=== PATIENT | female | born 1970 | race Caucasian/White ===

== ENCOUNTER → 2016-11-17 | Outpatient (CLI) | payer OTHER ==
[~2016-11-17] MED LIST: BACL10TA PO; CIPR-255 PO; FEXO1TAB49 PO; IBUP-103 PO; SUMA50TA15 PO
--- NOTE | 2016-11-18 15:10 | MAMMOGRAPHY REPORT ---
BILATERAL DIGITAL SCREENING MAMMOGRAM TOMOSYNTHESIS WITH CAD: 11/17/2016 CLINICAL HISTORY: Routine screening. Patient has no complaints. TECHNIQUE: Breast tomosynthesis in addition to standard 2D mammography was performed. Current study was also evaluated with a Computer Aided Detection (CAD) system. COMPARISON: Comparison is made to exams dated: 09/28/2015 mammogram and 06/17/2013 mammogram - [facility]. BREAST COMPOSITION: There are scattered areas of fibroglandular density in both breasts. FINDINGS: There is a lobulated 10 x 6 mm mass in the upper inner quadrant of the right breast. Bas ed on the tomosynthesis images, the borders are not all completely circumscribed and therefore furth er characterization with targeted ultrasound and possible additional mammographic views are recommen ded, although this could represent a benign fibroadenoma, cyst or lymph node. There are diffuse bilateral round and punctate benign-appearing microcalcifications. No other suspi cious mass, architectural distortion or cluster of microcalcifications is seen. IMPRESSION: ACR BI-RADS CATEGORY 0: INCOMPLETE EVALUATION: NEED ADDITIONAL IMAGING EVALUATION The lobulated 10 x 6 mm mass in the right breast needs additional evaluation. The patient will be called to schedule an appointment. Approximately 10% of breast cancers are not detected with mammography. A negative mammographic repor t should not delay biopsy if a clinically suggestive mass is present. Garima Doan M.D. ay/:11/17/2016 15:57:02 Sugarcane Research Technician: Emily ANGULO(R)(M)(BD), [facility] letter sent: Addl Imaging 0 BI-RADS Code: ACR BI-RADS Category 0: Incomplete Evaluation: Need Additional Imaging Evaluation
== END | disposition home or self-care (01) ==
LOC: C.MAMM 07:58
PROVIDERS: ATTEND Nurse Practitioner Family
DX: Z12.31 Encounter for screening mammogram for malignant neoplasm of breast (principal); N63 Unspecified lump in breast

== ENCOUNTER → 2016-11-28 | Outpatient (CLI) | payer OTHER ==
--- NOTE | 2016-12-01 12:37 | MAMMOGRAPHY REPORT ---
UNILATERAL RIGHT DIGITAL DIAGNOSTIC MAMMOGRAM TOMOSYNTHESIS AND TARGETED RIGHT ULTRASOUND: 11/28/2016 CLINICAL HISTORY: Callback from screening mammogram for right breast mass. TECHNIQUE: Breast tomosynthesis in addition to standard 2D mammography was performed. Spot rebeca marilyn right CC and MLO 2-D and tomosynthesis views were obtained. COMPARISON: Comparison is made to exams dated: 11/28/2016 ultrasound, 11/17/2016 mammogram, 09/28/2015 mammogram, and 06/17/2013 mammogram - [facility]. BREAST COMPOSITION: There are scattered areas of fibroglandular density in the right breast. FINDINGS: The spot compression views demonstrate a persistent oval lobulated 10 mm mass with non-ci rcumscribed margins in the right upper inner quadrant. Targeted ultrasound was performed of the area of the mammographic mass. In the right breast at 1:00 , 6 cm from the nipple, there is an oval isoechoic mass with echogenic internal septations and non-c ircumscribed margins, measuring 9 x 5 mm. No internal vascularity is evident. This corresponds wit h the mammographic mass and is indeterminant. Recommend ultrasound guided core needle biopsy for fu rther evaluation. IMPRESSION: ACR BI-RADS CATEGORY 4A: LOW SUSPICION FOR MALIGNANCY, TARGETED ULTRASOUND ACR BI-RADS CATEGORY 4A: LOW SUSPICION FOR MALIGNANCY Isoechoic non-circumscribed 9 mm mass in the right breast at 1:00 on ultrasound, which corresponds w ith the mammographic mass. The mass is indeterminate and ultrasound-guided core needle biopsy is re commended for further evaluation. A phone call was made to the physician's office to confirm faxed results were received. The patient has been verbally notified of the results. She tentatively scheduled the biopsy before leaving the department. Approximately 10% of breast cancers are not detected with mammography. A negative mammographic repor t should not delay biopsy if a clinically suggestive mass is present. Humera Sheldon M.D. ah/:11/30/2016 15:43:05 Methods Analyst Data Processing: Elena ANGULO(Concepcion)(M), [facility] letter sent: Abnormal 4/5 BI-RADS Code: ACR BI-RADS Category 4A: Low Suspicion For Malignancy Ultrasound BI-RADS: ACR BI-RADS Category 4A: Low Suspicion For Malignancy
== END | disposition home or self-care (01) ==
LOC: C.MAMM 14:14
PROVIDERS: ATTEND Nurse Practitioner Family
DX: N63 Unspecified lump in breast (principal)

== ENCOUNTER → 2016-12-10 | Outpatient (CLI) | payer OTHER ==
--- NOTE | 2016-12-10 14:13 | Discharge Instructions ---
Discharge Instructions Procedure Procedure Date: Dec 10, 2016. Reason for visit: Right Mass. Discharge Discharge Date: Dec 10, 2016. Discharge Diagnosis: post right breast ultrasound guided core biopsy Instructions Activity Recommendations: Additional Limitations (see below) Return to School/Work: no limitations Recommended Home Diet: No Limitations Provider Instructions: ACTIVITY RECOMMENDATIONS: * No lifting, pushing, pulling or exercising the affected side for three days. RETURN TO SCHOOL/WORK: * You may return to work/school after the procedure, but do not perform any strenuous activities for 24 to 48 hours. MEDICATIONS: * Tylenol (two 325 mg) every four to six hours if needed for mild pain (if not allergic to Tylenol). DIET: * Resume previous diet. SPECIAL CARE INSTRUCTIONS: * Keep biopsy site dry for 24 hours. May shower after 24 hours, but do not soak (bathe) incision. * May remove Tegaderm (plastic patch) tomorrow AFTER showering. * Leave the steri-strips on for one week. Allow the steri-strips to fall off by themselves. If not off after one week, you may remove them. You may place a Bandaid crosswise over the strips, if desired. * Apply ice 10 minutes on and 10 minutes off as needed. * Wear a bra at bedtime to sleep more comfortably for 2-3 days. * Your referring physician should have the results after approximately 5 to 7 business days. * Call for unusual bleeding, fever, drainage, etc or if you have any questions call [phone] during normal business hours or after hours call Dr Doan, . FOLLOW UP VISIT: Follow-up with Referring Physician as scheduled. Allergies Coded Allergies: No Known Allergies (Unverified , 08/12/13) Morgan De Luna Recommendations: Call your doctor if: * Temperature above 101 degrees * Pain not relieved by pain medicine ordered * There is increased drainage or redness from any incision * You have any unanswered questions or concerns. Your Doctors Instructions noted above were prepared by provider Garima Doan. Patient Signature Section: Patient Instructions Signature Page Wendy Jenkins Patient (or Guardian) Signature/Date: I have read and understand the instructions given to me by my caregivers. Caregiver/RN/Doctor Signature/Date: The above-named patient and/or guardian has received patient instructions on this date. + Original Patient Signature Page (only) stays with chart. Please make copy for patient.
--- NOTE | 2016-12-10 17:08 | MAMMOGRAPHY REPORT ---
ULTRASOUND GUIDED BIOPSY RIGHT BREAST: 12/10/2016 CLINICAL HISTORY: Indeterminate lobulated 9 mm mass in the 1:00 right breast, that is thought to cor relate with a mammographic mass. Patient presents for ultrasound-guided core biopsy. COMPARISON: Comparison is made to exams dated: 11/28/2016 mammogram, 11/28/2016 ultrasound, 06/17/2013 mammogram, 09/28/2015 mammogram, and 11/17/2016 mammogram - [facility]. PATIENT CONSENT: The procedure, risks and benefits were discussed with the patient and informed writ ten consent was obtained. Specific risks to this procedure include: bleeding, infection, puncture of adjacent structure, nontarget biopsy, sampling error and medication reaction. PROCEDURE DESCRIPTION: A time out was performed and the right breast was agreed as the site of biops y. The skin was prepped and draped in the usual sterile fashion. The multilobulated hypoechoic solid -appearing mass in the 1:00 right breast was chosen as the target for biopsy. Subcutaneous and intra parenchymal 1% buffered lidocaine was administered as local anesthesia. A skin incision was made. T hrough the incision, 4 samples were taken with a 12 gauge Celero biopsy device. A metallic marker wa s placed at the biopsy site. Hemostasis was achieved after manual compression. The patient tolerated the procedure well and there was no immediate complication. The samples were sent to the pathology department in appropriately labeled container. Postprocedure right CC and ML tomosynthesis images with reconstructed C-view were obtained. There i s a new ribbon-shaped metallic biopsy marker and no significant hematoma aligning with the previousl y observed mammographic mass in question. This confirms mammographicsonographic correlation. Path ology is pending. IMPRESSION: ULTRASOUND GUIDED BIOPSY Status post ultrasound-guided core biopsy of an indeterminate multilobulated 9 mm mass in the 1:00 r ight breast, with biopsy marker placed at the site. The patient will receive notification of the biopsy results from her referring physician. Garima Doan M.D. ay/:12/10/2016 14:42:41 Certified Residential Medication Aide: Elena MARQUEZ)(Loretta), [facility]
--- NOTE | 2016-12-10 17:08 | MAMMOGRAPHY REPORT ---
UNILATERAL RIGHT DIGITAL DIAGNOSTIC MAMMOGRAM: 12/10/2016 CLINICAL HISTORY: Status post ultrasound guided core biopsy in the 1:00 right breast. Please refer to the report from right breast ultrasound guided core biopsy performed at the same [facility] for full detail. IMPRESSION: POST PROCEDURE IMAGING FOR MARKER PLACEMENT Please refer to the report from right breast ultrasound guided core biopsy performed at the same [facility] for full detail. Approximately 10% of breast cancers are not detected with mammography. A negative mammographic repor t should not delay biopsy if a clinically suggestive mass is present. Garima Doan M.D. ay/:12/10/2016 14:16:00 Environmental Health And Safety Intern: Elena ANGULO(R)(M), [facility] BI-RADS Code: Post Procedure Imaging For Marker Placement
== END | disposition home or self-care (01) ==
LOC: C.MAMM 13:33
PROVIDERS: ATTEND Nurse Practitioner Family
DX: D24.1 Benign neoplasm of right breast (principal)

== ENCOUNTER → 2017-09-23 | Outpatient (CLI) | payer OTHER ==
--- NOTE | 2017-09-24 07:52 | MAMMOGRAPHY REPORT ---
UNILATERAL LEFT DIGITAL DIAGNOSTIC MAMMOGRAM TOMOSYNTHESIS WITH CAD AND TARGETED BILATERAL ULTRASOUND : 09/23/2017 CLINICAL HISTORY: 46-year-old woman presents with new pain in the left upper outer quadrant which she reports is now constant. No skin erythema or nipple discharge. No definite palpable mass. History of recent benign right breast biopsy. TECHNIQUE: Left breast tomosynthesis in addition to standard 2D mammography was performed. Current st udy was also evaluated with a Computer Aided Detection (CAD) system. COMPARISON: Comparison is made to exams dated: 11/17/2016 mammogram, 09/28/2015 mammogram, and 3 mammogram - [facility]. BREAST COMPOSITION: There are scattered areas of fibroglandular density in the left breast. FINDINGS: A square shaped pain marker overlies the upper outer quadrant of the left breast, denoting the area of pain reported by the patient. There is a nodular asymmetry in the superior posterior le ft breast on the MLO view, that appears similar to the prior 11/17/2016 mammograms. A few scattered benign-appearing calcifications. No obvious new mass, focal area of distortion, suspicious calcifica tions or asymmetry is identified. Further evaluation with ultrasound was performed. Targeted ultrasound was performed in the left upper outer quadrant in the areas of pain described by the patient, including the 12:00, 1:00 axes and axillary region. In the 1:00 left breast approximate ly 8 cm from the nipple, there is an isoechoic and anechoic solid appearing mass, possibly an intracy stic mass, measuring 5.8 x 3.2 x 4.0 mm. This could represent a common located cyst or a papilloma a nd definitive characterization with an ultrasound-guided core biopsy is recommended. Throughout the remainder of the areas of pain in the superior left breast and axilla, sonographically normal tissue is seen without evidence of another mass. No suspicious adenopathy is seen in the left axilla. Additional ultrasound was performed in the superior right breast, 11:00 through 1:00 axes as the claudia ent reported a lump after the biopsy. The biopsied mass in the 1:00 right breast appears similar to prior ultrasounds. No other suspicious solid or cystic mass is seen in the superior right breast. IMPRESSION: ACR BI-RADS CATEGORY 4: SUSPICIOUS, TARGETED ULTRASOUND ACR BI-RADS CATEGORY 4: SUSPICIO US 1. Ultrasound guided core biopsy is recommended for an indeterminate possible intracystic mass measu ring 5.8 mm, in the 1:00 left breast, which may have been incidentally identified and is likely not t he underlying cause of the patient's reported superior breast pain. 2. No other suspicious abnormality to explain pain throughout the left superior breast and axilla. No suspicious adenopathy identified. Clinical follow-up is therefore recommended. 3. No new suspicious abnormality on targeted ultrasound identified in the superior right breast to e xplain a lump after the biopsy. Clinical follow-up is also recommended. These results and recommendations were discussed with the patient at the time of the exam. She tenta tively scheduled the left breast biopsy prior to leaving our department. Approximately 10% of breast cancers are not detected with mammography. A negative mammographic report should not delay biopsy if a clinically suggestive mass is present. Garima Doan M.D. ay/:09/23/2017 08:43:52 Field Evidence Technician: Riana ANGULO(R)(M), [facility] letter sent: Abnormal 4/5 BI-RADS Code: ACR BI-RADS Category 4: Suspicious Ultrasound BI-RADS: ACR BI-RADS Category 4: Suspici ous
== END | disposition home or self-care (01) ==
LOC: C.MAMM 07:57
PROVIDERS: ATTEND Nurse Practitioner Family
DX: N64.4 Mastodynia (principal); R92.8 Other abnormal and inconclusive findings on diagnostic imaging of breast

== ENCOUNTER → 2017-10-01 | Outpatient (CLI) | payer OTHER ==
--- NOTE | 2017-10-01 14:00 | Discharge Instructions ---
Discharge Instructions Procedure Procedure Date: Oct 01, 2017. Reason for visit: Left Mass. Discharge Discharge Date: Oct 01, 2017. Discharge Diagnosis: status post breast biopsy Instructions Activity Recommendations: Additional Limitations (see below) Return to School/Work: no limitations Recommended Home Diet: No Limitations Provider Instructions: ACTIVITY RECOMMENDATIONS: * No lifting, pushing, pulling or exercising the affected side for three days. RETURN TO SCHOOL/WORK: * You may return to work/school after the procedure, but do not perform any strenuous activities for 24 to 48 hours. MEDICATIONS: * Tylenol (two 325 mg) every four to six hours if needed for mild pain (if not allergic to Tylenol). DIET: * Resume previous diet. SPECIAL CARE INSTRUCTIONS: * Keep biopsy site dry for 24 hours. May shower after 24 hours, but do not soak (bathe) incision. * May remove Tegaderm (plastic patch) tomorrow AFTER showering. * Leave the steri-strips on for one week. Allow the steri-strips to fall off by themselves. If not off after one week, you may remove them. You may place a Bandaid crosswise over the strips, if desired. * Apply ice 10 minutes on and 10 minutes off as needed. * Wear a bra at bedtime to sleep more comfortably for 2-3 days. * Your referring physician should have the results after approximately 5 to 7 business days. * Call for unusual bleeding, fever, drainage, etc or if you have any questions call during normal business hours or after hours call Dr Sheldon, . FOLLOW UP VISIT: Follow-up with Referring Physician as scheduled. Allergies Coded Allergies: No Known Allergies (Unverified , 08/12/13) Morgan De Luna Recommendations: Call your doctor if: * Temperature above 101 degrees * Pain not relieved by pain medicine ordered * There is increased drainage or redness from any incision * You have any unanswered questions or concerns. Your Doctors Instructions noted above were prepared by provider Humera Sheldon. Patient Signature Section: Patient Instructions Signature Page Wendy Dupontover Patient (or Guardian) Signature/Date: I have read and understand the instructions given to me by my caregivers. Caregiver/RN/Doctor Signature/Date: The above-named patient and/or guardian has received patient instructions on this date. + Original Patient Signature Page (only) stays with chart. Please make copy for patient.
--- NOTE | 2017-10-01 15:30 | MAMMOGRAPHY REPORT ---
UNILATERAL LEFT DIGITAL DIAGNOSTIC MAMMOGRAM TOMOSYNTHESIS: 10/01/2017 CLINICAL HISTORY: Status post left breast biopsy. TECHNIQUE: Breast tomosynthesis in addition to standard 2D mammography was performed. Post procedur e left CC and ML tomosynthesis images were obtained. COMPARISON: Comparison is made to exams dated: 09/23/2017 mammogram, 09/23/2017 ultrasound, 12/10/2016 ultrasound biopsy, 12/10/2016 mammogram, 11/28/2016 mammogram, and 11/28/2016 ultrasound - [facility]. BREAST COMPOSITION: There are scattered areas of fibroglandular density in the left breast. FINDINGS: A new biopsy marker clip is seen at the site of the biopsied mass in the left upper outer quadrant. No significant postbiopsy hematoma is seen. IMPRESSION: POST PROCEDURE IMAGING FOR MARKER PLACEMENT New biopsy marker clip status post left breast biopsy. Pathology results are pending. Approximately 10% of breast cancers are not detected with mammography. A negative mammographic report should not delay biopsy if a clinically suggestive mass is present. Humera Sheldon M.D. ah/:10/01/2017 14:09:04 Finishing Supervisor Plastic Sheets: Elena Gomez, [facility] BI-RADS Code: Post Procedure Imaging For Marker Placement
--- NOTE | 2017-10-01 15:30 | MAMMOGRAPHY REPORT ---
ULTRASOUND GUIDED BIOPSY LEFT BREAST: 10/01/2017 CLINICAL HISTORY: Left 1 o'clock breast mass. PATIENT CONSENT: The procedure, risks and benefits were discussed with the patient and informed writt en consent was obtained. A timeout was performed immediately prior to the procedure. PROCEDURE DESCRIPTION: With ultrasound guidance, aseptic technique, and lidocaine as the local anesth etic (1% lidocaine to anesthetize the skin and 1% lidocaine with epinephrine to anesthetize the deepe r tissues), an attempt was made to aspirate the left 1:00 breast mass. The mass partially aspirated, however, a small residual portion was still present after aspiration. Therefore, the decision was m celi to biopsy the residual portion. The mass of concern in the left 1:00 breast was sampled 3 times w ith a 14-gauge Achieve biopsy needle. Immediately thereafter, with ultrasound guidance, aseptic techn ique, and lidocaine as the local anesthetic, a metallic localizer clip was placed at the biopsy site. Direct pressure was applied to the site immediately post procedure and hemostasis was achieved. Po stprocedure unilateral mammograms were performed to confirm clip placement. Steri-Strips were placed over the site and covered with Tegaderm. The patient tolerated the procedure without complication. She was given wound care instructions. The specimens were sent to pathology for analysis. COMPARISON: Comparison is made to exams dated: 09/23/2017 mammogram, 09/23/2017 ultrasound, 11/17/2016 m ammogram, 09/28/2015 mammogram, and 06/17/2013 mammogram - [facility]. IMPRESSION: ULTRASOUND GUIDED BIOPSY Ultrasound guided core needle biopsy of the left 1:00 breast mass, with clip placement. The patient will receive pathology results from her referring provider. Humera Sheldon M.D. /:10/01/2017 14:04:05 Wood Tile Installer: Elena Gomez, [facility]
== END | disposition home or self-care (01) ==
LOC: C.MAMM 13:28
PROVIDERS: ATTEND Nurse Practitioner Family
DX: N63.0 Unspecified lump in unspecified breast (principal)

== ENCOUNTER → 2018-06-02 | Outpatient (CLI) | payer OTHER | END | disposition home or self-care (01) | LOC: C.LABSPEC 17:18 | PROVIDERS: ATTEND Nurse Practitioner Family | DX: N39.0 Urinary tract infection, site not specified (principal) ==

== ENCOUNTER 2018-07-08 12:31 | Emergency (ER) | payer OTHER ==
[~2018-07-08] VITALS: Ht 165.1 cm; Wt 101.4 kg
[2018-07-08 12:46] VITALS: Ht 165.1 cm; Wt 101.4 kg
--- NOTE | 2018-07-08 12:55 | EMERGENCY ROOM VISIT NOTE ---
History First contact with patient: 12:41 Chief Complaint: CARDIAC ASSESSMENT Stated Complaint: CHEST HURTS,HEADACHE,LEFT ARM FEELS NUMB Nursing Triage Summary: chest pain midsternal for a few days History of Present Illness The patient is a 47 year old female who presents to the Emergency Room with complaints of intermittent chest pain for 2-3 days. Patient states she also feels pain in her back between the shoulder blades but does not feel like the pain radiates through from her chest and her back. Patient also complains of intermittent pain into her left arm and a slight numbness in her left hand. Patient is right-hand dominant. Patient denies any trouble breathing, nausea or vomiting. States she is intermittently lightheaded. Patient denies any recent travel, trauma, change in activity, recent illness. Patient states she is prone to upper respiratory infections and feels this is in part related to her tobacco use. Patient states she is trying to quit smoking and is down to 5 cigarettes a day. Patient states she is under a lot of stress and feels that may be a constricting factor also. Patient states she has previously had a stress test which was reported to her as negative. Patient denies any recent change in medication. Patient states she does have high cholesterol and does take medication for that. Patient states she has recently had similar symptoms under extreme times of stress. Review of Systems See HPI for pertinent positives & negatives. A total of 10 systems reviewed and were otherwise negative. Past Medical/Surgical History Medical Problems: (1) Arthritis Surgical Problems: (1) S/P hysterectomy Family History Diabetes mellitus FH: arthritis FH: dementia FH: thyroid disease Social History Smoking Status: Current Every Day Smoker Alcohol Use: none Drug Use: none Marital Status: single Housing Status: lives alone Occupation Status: employed Current/Historical Medications Scheduled Buspirone Hcl (Buspirone Hcl), 10 MG PO BID Cetirizine (Zyrtec), 10 MG PO DAILY Montelukast Sodium (Singulair), 10 MG PO DAILY Rosuvastatin Calcium (Crestor), 20 MG PO HS Sumatriptan Succinate (Imitrex), Unknown Dose PO PRN Trospium Chloride (Trospium Chloride Er), 60 MG PO HS Scheduled PRN Ibuprofen Tab (Advil), 400 MG PO BID PRN for Pain Miscellaneous Medications Buspirone Hcl (Buspar), 15 MG PO Physical Exam Vital Signs Date Time Temp Pulse Resp B/P (MAP) Pulse Ox O2 Delivery O2 Flow Rate FiO2 07/08/18 16:13 36.8 68 18 110/68 98 07/08/18 14:16 66 20 106/60 99 Room Air 07/08/18 12:56 81 07/08/18 12:46 99 Room Air 07/08/18 12:46 36.9 74 22 139/88 99 Room Air Physical Exam GENERAL: alert, well appearing, well nourished, no distress, non-toxic, anxious and tearful EYE EXAM: normal conjunctiva, PERRL and EOM's grossly intact OROPHARYNX: no exudate, no erythema, lips, buccal mucosa, and tongue normal and mucous membranes are moist NECK: supple, no nuchal rigidity, no adenopathy, non-tender LUNGS: Clear to auscultation. Normal chest wall mechanics, no w/r/r HEART: no murmurs, S1 normal and S2 normal, no reproducible chest wall tenderness ABDOMEN: abdomen soft, non-tender, normo-active bowel sounds, no masses, no rebound or guarding. BACK: Back is symmetrical on inspection and there is no deformity, no midline tenderness, no CVA tenderness. SKIN: no rashes and no bruising UPPER EXTREMITIES: upper extremities are grossly normal. Normal pulses b/l. Normal objective sensory testing b/l, FROM b/l. LOWER EXTREMITIES: No pitting edema. Nml pulses b/l, FROM b/l, normal objective sensory testing b/l. NEURO EXAM: Normal sensorium, cranial nerves II-XII grossly intact, normal speech, no gross weakness of arms, no gross weakness of legs. Gross sensation intact. No ataxia, no facial droop. Medical Decision & Procedures ER Provider Diagnostic Interpretation: CHEST ONE VIEW PORTABLE CLINICAL HISTORY: 47 years-old Female presenting with chest pain, headache, left arm numbness. TECHNIQUE: Portable upright AP view of the chest was obtained. COMPARISON: None. FINDINGS: Cardiomediastinal silhouette normal. Mild pulmonary vascular prominence. No focal opacity. No large effusion or pneumothorax. Osseous structures normal. Upper abdomen normal. IMPRESSION: 1. Findings may suggest mild volume overload. Otherwise no acute cardiopulmonary disease. Electronically signed by: Artur Swenson M.D. 07/08/2018 1:47 PM Dictated Date/Time: 07/08/2018 1:46 PM Laboratory Results 07/08/18 13:45 Red Blood Count 4.42, Mean Corpuscular Volume 91.6, Mean Corpuscular Hemoglobin 31.0, Mean Corpuscular Hemoglobin Concent 33.8, Mean Platelet Volume 9.8, Neutrophils (%) (Auto) 56.0, Lymphocytes (%) (Auto) 37.6, Monocytes (%) (Auto) 3.9, Eosinophils (%) (Auto) 2.1, Basophils (%) (Auto) 0.3, Neutrophils # (Auto) 4.03, Lymphocytes # (Auto) 2.71, Monocytes # (Auto) 0.28, Eosinophils # (Auto) 0.15, Basophils # (Auto) 0.02 07/08/18 13:45 Test 07/08/18 13:45 White Blood Count 7.20 K/uL (4.8-10.8) Red Blood Count 4.42 M/uL (4.2-5.4) Hemoglobin 13.7 g/dL (12.0-16.0) Hematocrit 40.5 % (37-47) Mean Corpuscular Volume 91.6 fL (80-100) Mean Corpuscular Hemoglobin 31.0 pg (25-34) Mean Corpuscular Hemoglobin Concent 33.8 g/dl (32-36) Platelet Count 274 K/uL (130-400) Mean Platelet Volume 9.8 fL (7.4-10.4) Neutrophils (%) (Auto) 56.0 % Lymphocytes (%) (Auto) 37.6 % Monocytes (%) (Auto) 3.9 % Eosinophils (%) (Auto) 2.1 % Basophils (%) (Auto) 0.3 % Neutrophils # (Auto) 4.03 K/uL (1.4-6.5) Lymphocytes # (Auto) 2.71 K/uL (1.2-3.4) Monocytes # (Auto) 0.28 K/uL (0.11-0.59) Eosinophils # (Auto) 0.15 K/uL (0-0.5) Basophils # (Auto) 0.02 K/uL (0-0.2) RDW Standard Deviation 42.5 fL (36.4-46.3) RDW Coefficient of Variation 12.6 % (11.5-14.5) Immature Granulocyte % (Auto) 0.1 % Immature Granulocyte # (Auto) 0.01 K/uL (0.00-0.02) Prothrombin Time 10.0 SECONDS (9.0-12.0) Prothromb Time International Ratio 1.0 (0.9-1.1) Anion Gap 7.0 mmol/L (3-11) Est Creatinine Clear Calc Drug Dose 99.8 ml/min Estimated GFR () 97.3 Estimated GFR (Non- 83.9 BUN/Creatinine Ratio 16.0 (10-20) Calcium Level 9.5 mg/dl (8.5-10.1) Magnesium Level 2.6 mg/dl (1.8-2.4) Total Bilirubin 0.5 mg/dl (0.2-1) Aspartate Amino Transf (AST/SGOT) 16 U/L (15-37) Alanine Aminotransferase (ALT/SGPT) 24 U/L (12-78) Alkaline Phosphatase 111 U/L (45-117) Troponin I < 0.015 ng/ml (0-0.045) Pro-B-Type Natriuretic Peptide 84 pg/ml (0-450) Total Protein 7.4 gm/dl (6.4-8.2) Albumin 3.9 gm/dl (3.4-5.0) Globulin 3.5 gm/dl (2.5-4.0) Albumin/Globulin Ratio 1.1 (0.9-2) Lipase 151 U/L (73-393) Human Chorionic Gonadotropin, Qual NEG (NEG) Medications Administered Medications (Trade) Dose Ordered Sig/Germaine Route Start Time Stop Time Status Last Admin Dose Admin Ketorolac Tromethamine (Toradol Inj) 30 mg NOW STAT IV 07/08/18 14:36 07/08/18 14:37 DC 07/08/18 15:12 30 MG Al Hydroxide/Mg Hydroxide (Maalox Susp) 30 ml NOW STAT PO 07/08/18 14:36 07/08/18 14:37 DC 07/08/18 15:12 30 ML Albuterol (Ventolin Hfa Inhaler) 2 puffs NOW ONCE INH 07/08/18 15:45 07/08/18 15:46 DC 07/08/18 16:13 2 PUFFS ECG Per My Interpretation Indication: chest pain Rate (beats per minute): 79 Rhythm: normal sinus Findings: no acute ischemic change Comparison ECG Date: no prior available ED Course 1500: Patient updated of all results. Patient states pain is markedly improved although not completely resolved. States left arm pain and left hand numbness have completely resolved. Medical Decision Differential diagnosis: Etiologies such as cardiac ischemia, aortic dissection, pulmonary embolism, pneumonia, pneumothorax, musculoskeletal, infections, pericarditis, myocarditis , esophageal rupture, gastrointestinal, as well as others were entertained. Heart score 2 PERC negative Patient anxious appearing here, and improved with medication and monitoring. Patient hemo-dynamically stable throughout, no ectopy or dysrhythmia noted on telemetry. I do not suspect ACS, dissection, PE, tamponade, no evidence of consolidation or effusion. I do not suspect occult infectious etiology. I do not suspect congestive heart failure, patient with no lower extremity edema, no rales, no history of CHF. Discussed with patient possible GI component given slight history of reflux and likely stress-induced gastritis. I do not suspect perforation or GI bleed. Encourage patient to continue her efforts to quit smoking. Discussed with patient symptoms to watch and return for, she verbalized understanding and was agreeable to plan. Medication Reconcilliation Current Medication List: was personally reviewed by me Blood Pressure Screening Patient's blood pressure: Elevated blood pressure Blood pressure disposition: Elevated BP felt to be situational Impression Primary Impression: Chest pain Additional Impression: Anxiety Departure Information Dispostion Home / Self-Care Condition GOOD Referrals Mary Lundy (PCP) Patient Instructions My [facility] Additional Instructions Please call follow-up with your family doctor as a precaution. Please continue your efforts to quit smoking. Please try to find an outlet for your stress as much as possible to help manage your stress especially if it does not seem that it will be resolved in the foreseeable future. Please try to drink plenty of water daily. Please avoid acidic food in your diet which could contribute to stomach or esophageal irritation. If you develop recurrent episodes of chest pain, develop neck or jaw pain, back pain, arm pain, numbness or tingling, dizziness, vomiting, trouble breathing, you have any other new concerns, please return to the ER immediately. Problem Qualifiers Primary Impression: Chest pain Chest pain type: unspecified Qualified Codes: R07.9 - Chest pain, unspecified
[2018-07-08] MEDS ORDERED: CETI10TA84 PO (13:16)
[2018-07-08] MEDS ORDERED: TROS1CAP2 PO (13:16)
[2018-07-08] MEDS ORDERED: MONT1TAB3 PO (13:16)
[2018-07-08] MEDS ORDERED: ROSU20TA PO (13:16)
[2018-07-08] MEDS ORDERED: BUSP-8 PO (13:16)
[2018-07-08] MEDS ORDERED: BUSP15TA70 PO (13:16)
--- NOTE | 2018-07-08 13:49 | DIAGNOSTIC IMAGING REPORT ---
CHEST ONE VIEW PORTABLE CLINICAL HISTORY: 47 years-old Female presenting with chest pain, headache, left arm numbness. TECHNIQUE: Portable upright AP view of the chest was obtained. COMPARISON: None. FINDINGS: Cardiomediastinal silhouette normal. Mild pulmonary vascular prominence. No focal opacity. No large effusion or pneumothorax. Osseous structures normal. Upper abdomen normal. IMPRESSION: 1. Findings may suggest mild volume overload. Otherwise no acute cardiopulmonary disease. Electronically signed by: Artur Swenson M.D. 07/08/2018 1:47 PM Dictated Date/Time: 07/08/2018 1:46 PM
[2018-07-08 13:59] LABS: BASO % 0.3 %; BASO ABS # 0.02 K/uL (0-0.2); EOS % 2.1 %; EOS ABS # 0.15 K/uL (0-0.5); HEMATOCRIT 40.5 % (37-47); HEMOGLOBIN 13.7 g/dL (12.0-16.0); IG# 0.01 K/uL (0.00-0.02); LYMPH % 37.6 %; LYMPH ABS # 2.71 K/uL (1.2-3.4); MEAN CELL VOLUME 91.6 fL (80-100); MEAN CORPUSCULAR HGB CONC 33.8 g/dl (32-36); MEAN PLATELET VOLUME 9.8 fL (7.4-10.4); MONO % 3.9 %; MONO ABS # 0.28 K/uL (0.11-0.59); NEUT ABS # 4.03 K/uL (1.4-6.5); PLATELET COUNT 274 K/uL (130-400); RED CELL DISTRIBUTION WIDTH CV 12.6 % (11.5-14.5); RED CELL DISTRIBUTION WIDTH SD 42.5 fL (36.4-46.3)
[2018-07-08 14:28] LABS: ALBUMIN 3.9 gm/dl (3.4-5.0); ALKALINE PHOSPHATASE 111 U/L (45-117); ALT/SGPT 24 U/L (12-78); AST/SGOT 16 U/L (15-37); BLOOD UREA NITROGEN 13 mg/dl (7-18); CALCIUM 9.5 mg/dl (8.5-10.1); CARBON DIOXIDE 26 mmol/L (21-32); CREATININE 0.84 mg/dl (0.60-1.20); GLUCOSE 82 mg/dl (70-99); LIPASE 151 U/L (73-393); POTASSIUM 3.7 mmol/L (3.5-5.1); SODIUM 138 mmol/L (136-145); TOTAL PROTEIN 7.4 gm/dl (6.4-8.2)
[2018-07-08] MEDS ORDERED: KETOROLAC TROMETHAMINE 30 MG/ML VIAL IV STA (14:36)
[2018-07-08] MEDS ORDERED: ALUMINUM/MAGNESIUM SUSP 30 ML UDC PO STA (14:36)
[2018-07-08] MEDS ORDERED: ALBUTEROL HFA 8 GM INHALER INH ONE (15:45)
[2018-07-08 16:13] VITALS: BP 110/68; PULSE 68; TEMP 36.8; O2SAT 98
== END 2018-07-08 16:14 | disposition home or self-care (01) ==
LOC: C.EDB 12:33 → C.EDC 16:14
DX: R07.9 Chest pain, unspecified (principal); F41.9 Anxiety disorder, unspecified; M19.90 Unspecified osteoarthritis, unspecified site; F17.200 Nicotine dependence, unspecified, uncomplicated